=== PATIENT | female | born 1985 | race Caucasian/White ===

== ENCOUNTER 2019-09-23 17:37 | Inpatient (IN) | payer BC ==
[~2019-09-23] VITALS: Ht 160 cm; Wt 90.9 kg
[2019-10-23] MEDS ORDERED: [UNRECOGNIZED DRUG - OTHER] PO (15:35)
[2019-10-23 16:00] LABS: BASOPHILS 0.3 % (0-2); EOSINOPHILS 1.4 % (0-7); HEMATOCRIT 40.9 % (36.0-48.0); HEMOGLOBIN 13.5 g/dL (12-16); IMMATURE GRANULOCYTES 0.3 % (0-5); LYMPHOCYTES 37.8 % (15-50); MCV 84.7 fL (80.0-100.0); MONOCYTES 7.7 % (2-11); NEUTROPHILS 52.5 % (40-80); PLATELET COUNT 394 10x3/uL (130-400); RBC 4.83 10x6/uL (4.00-5.40); RDW 13.4 % (11.5-14.5); WBC 11.6 10x3/uL (4.8-10.8)
[2019-10-23 16:58] LABS: CALC OSMOLALITY 279 mosm/kg (275-300); CARBON DIOXIDE 25.3 mmol/L (21.0-32.0); CHLORIDE - SERUM 106 mmol/L (98-107); CREATININE - SERUM 0.7 mg/dL (0.6-1.3); GLUCOSE 118 mg/dL (74-106); POTASSIUM - SERUM 3.6 mmol/L (3.5-5.1); SODIUM 140 mmol/L (136-145); UREA NITROGEN 12 mg/dL (7-18); eGFR NON AFRICAN AMERICAN > 90 mL/min (90-120)
[2019-10-25] VITALS (13 sets, daily range): BP systolic 109–141; BP diastolic 68–94; Ht 160 cm; Wt 90.9 kg
[2019-10-25] MEDS ORDERED: ZYRTEC D PO (05:36)
[2019-10-25 06:23] LABS: HCG URINE NEGATIVE (NEGATIVE)
--- NOTE | 2019-10-25 11:07 | NUR ---
TO ROOM 1273 VIA BED FROM RR. AWAKE AND ALERT. VERBAL RESPONSES APPRO TO QUESTIONS. LARRY AT WILL. NO O2 ON. IV LT HAND AND LR INFUSING-PLACED ON PUMP AT 125CC/HR. BIKINI LINE INCISION WITH DRESSING -CD&I. ICE CAP TO ABD. SMILEY CATH WITH BLUE TINT URINE. SCD'S ON.
--- NOTE | 2019-10-25 11:12 | NUR ---
DR. PATRICIA CALLED FOR POST OP ORDERS D/T PT C/O PAIN. ORDERS REC'D.
--- NOTE | 2019-10-25 11:46 | NUR ---
OVEN WORKER DILAUDID 0.2MG Q10MIN SETUP AND EXPLAINED TO PT. FAMILY AT BEDSIDE.
--- NOTE | 2019-10-25 11:50 | NUR ---
EATING ON ICE CHIPS. STATES NAUSEA IS BETTER.
--- NOTE | 2019-10-25 12:30 | NUR ---
resting - denies needs. sipping on liquids- tolerating well.
--- NOTE | 2019-10-25 14:54 | NUR ---
ABD SOFT. ABD DRESSING REMAINS CD&I. INCENTIVE ALICIA USED. POSITION CHANGED TO RT SIDE TILT. STATES FEELS A LITTLE NAUSEATED - WILL GIVEN ZOFRAN.
--- NOTE | 2019-10-25 16:00 | NUR ---
TO ROOM TO EMPTY SMILEY AND CLEAR IV FLUID TOTALS. PT IS SITTING UP IN THE BED WATCHING TV, SEE I/O FOR TOTALS. ABDOMEN PALPATES SOFT, ICE PACK REMOVED FROM ABDOMEN, SLIGH REDNESS NOTED AREA UNDER ICE PACK, PT AGREES. PT DENIES ALL NEEDS AT THIS TIME. SRUP X2, CALL LIGHT AND PHONE WITHIN REACH.
--- NOTE | 2019-10-25 16:11 | NUR ---
STATES THAT NAUSEA IS A LITTLE BETTER. NO EMESIS. ABD SOFT. DRESSING CD&I.
--- NOTE | 2019-10-25 19:34 | NUR ---
PT REC'D IN BED AT THIS TIME. NO DISTRESS NOTED. PT STATES THAT HER PAIN LEVEL IS 4. DRESSING TO THE ABDOMEN C/D/I. SMILEY CATH PATENT WITH SMALL AMOUNT OF URINE NOTED. COMPLETTE ASSESSEMNT PER FOWSHEET AT THIS TIME. Brown SPAULDING, RN
--- NOTE | 2019-10-25 19:48 | NUR ---
TORADOL AND ZOFRAN GIVEN AT THIS TIME FOR NAUSEA AND PAIN. Brown SPAULDING RN
--- NOTE | 2019-10-25 20:35 | NUR ---
PT REC'D IN BED AT THIS TIME. STATES NAUSEA IS BETTER AND PAIN LEVEL IS A 2 AT THIS TIME. SMILEY CATH EMPTIED WITH 300 ML OF URINE NOTED. NO OTHER NEEDS NOTED AT THIS TIME. Brown SPAULDING RN
--- NOTE | 2019-10-25 21:35 | NUR ---
PT REC'D IN BED AT THIS TIME. STATES THAT PAIN IS A 2. PT REPOSITIONED AT THIS TIME. NO DISTRESS NOTED. Brown SPAULDING RN
--- NOTE | 2019-10-25 22:36 | NUR ---
PT ASLEEP AT THIS TIME. RESPS EVEN AND UNLABORED. NO DISTRESS NOTED. Brown SPAULDING RN
[2019-10-26] VITALS (7 sets, daily range): BP systolic 104–122; BP diastolic 52–74
--- NOTE | 2019-10-26 00:07 | NUR ---
PT REC'D AWAKE AT THIS TIME. STATES THAT PAIN CONTROL IS ADEQUATE. VSS. SMILEY CATH EMPTIED WITH 1150 ML OF CLEAR URINE NOTED. Brown SPAULDING, RN
--- NOTE | 2019-10-26 01:49 | NUR ---
PT REC'D IN BED AT THIS TIME. STATES PAIN OF 4. PT MEDICATED WITH TORADOL. WILL MONITOR. Brown SPAULDING RN
--- NOTE | 2019-10-26 02:55 | NUR ---
PT RESTING AT THIS TIME. DID NOT AWAKEN. NO DISTRESS NOTED. Brown SPAULDING RN
[2019-10-26 06:14] LABS: BASOPHILS 0.1 % (0-2); EOSINOPHILS 0.1 % (0-7); HEMATOCRIT 38.4 % (36.0-48.0); HEMOGLOBIN 12.3 g/dL (12-16); IMMATURE GRANULOCYTES 0.5 % (0-5); MCH 27.6 pg (26.0-34.0); MCV 86.1 fL (80.0-100.0); MEAN PLATELET VOLUME 10.3 fL (7.4-10.4); MONOCYTES 9.2 % (2-11); NEUTROPHILS 74.1 % (40-80); PLATELET COUNT 341 10x3/uL (130-400); RBC 4.46 10x6/uL (4.00-5.40); RDW 13.7 % (11.5-14.5)
[2019-10-26 06:18] LABS: CALC OSMOLALITY 274 mosm/kg (275-300); CALCIUM 8.7 mg/dL (8.5-10.1); CARBON DIOXIDE 26.8 mmol/L (21.0-32.0); CHLORIDE - SERUM 105 mmol/L (98-107); CREATININE - SERUM 0.7 mg/dL (0.6-1.3); GLUCOSE 100 mg/dL (74-106); POTASSIUM - SERUM 3.9 mmol/L (3.5-5.1); SODIUM 138 mmol/L (136-145); UREA NITROGEN 9 mg/dL (7-18); eGFR NON AFRICAN AMERICAN > 90 mL/min (90-120)
--- NOTE | 2019-10-26 08:06 | NUR ---
TORADOL 30 MG GIVEN IVP FOR 3/10 INCISIONAL BURNING. IV FLUIDS THEN DC'D. DISCUSSED CHANGED TO PO MEDS, SHOWER, VOIDING AND AMBULATION TODAY. SMILEY DC'D WITH 125ML CLEAR URINE IN BAG. STATES "THAT FEELS BETTER". SHIFT ASSESSMENT WAS COMPLETED. SDCS REMOVED AT THIS TIME, ENCOURAGED PT TO MOVE LEGS AROUND, C/O SOME ITCHING LEFT UPPER CALF "I THINK BECAUSE OF SCD'S". WILL REPLACE WHEN PT IS READY. SALINE LOCK WAS FLUSHED. REGULAR DIET GIVEN. SIDE RAILS UP X 2, CALL LIGHT IN REACH. NO ADDITIONAL REQUESTS. DISCUSSED RELIEF MEASURES FOR GAS. VERBALIZED UNDERSTANDING. TO CALL WHEN NEEDING TO VOID OR PRN.
--- NOTE | 2019-10-26 10:36 | NUR ---
UP TO BATHROOM TO VOID. MISSED [place] HAT BUT NOTED YELLOW COLOR IN TOILET, 10 ML IN [place] HAT. YONY-CARE PER SELF, CLEAN YONY-PAD AND UNDERWEAR ON. AMBULATING IN ROOM. CURRENTLY BRUSHING TEETH. 3/10 INCISIONAL SORENESS. DENIES NEEDING ANYTHING. PLAN SHOWER AFTER LUNCH. VISITOR X 1 IN ROOM. PARTIAL LINEN CHANGE DONE. TO CALL IF ANYTHING IS NEEDED. VERBALIZED UNDERSTANDING.
--- NOTE | 2019-10-26 12:06 | NUR ---
SITTING UP IN BED WATCHING TV. NO REQUESTS AT THIS TIME. SAYS HER MOTHER WILL BE HERE ABOUT 1330. PLAN SHOWER BEFORE OR AT THAT TIME. TO CALL IF ANYTHING IS NEEDED. VERBALIZED UNDERSTANDING. WAITING ON LUNCH.
--- NOTE | 2019-10-26 13:05 | NUR ---
AMBULATING IN AJCOBSEN. AMBULATED TO ICE MACHINE AND BACK TO ROOM. DENIES NEEDING ANYTHING. SAYS SHE MIGHT LIKE PAIN MEDICATION ABOUT 2:00 BEFORE HER SHOWER. TOLERATED AMBULATION WITHOUT DIFFICULTY.
--- NOTE | 2019-10-26 14:13 | NUR ---
TORADOL 10 MG AND NORCO 10 MG GIVEN FOR RELIEF OF 3/10 INCISIONAL BURNING AND FOR PREPARATION TO TAKE SHOWER. LAYING IN BED WATCHING TV AT PRESENT. DECLINES SCDS AT THIS TIME SAYING THAT SHE JUST GOT BACK IN BED AFTER VOIDING. TO LET RN KNOW WHEN STAYING IN BED AND WILL REPLACE SCDS. REMINDED TO USE INCENTIVE SPIROMETER HOURLY AND TO MOVE LE FREQUENTLY. VERBALIZED UNDERSTANDING. VOIDED 200+ ML GREEN TINGED URINE. NOT ALL URINE WAS COLLECTED IN [place] HAT. GREEN TINGE NOTED IN TOILET BOWL.
--- NOTE | 2019-10-26 16:26 | NUR ---
COMPLETED SHOWER, COMPLETE LINEN CHANGE DONE. WAS INSTRUCTED ON DRESSING REMOVAL IN SHOWER AND SKIN CARE WITH CHIVO. PAIN WAS 5/10 AND NOW 3/10 AFTER RETURNING TO BED. CURRENTLY TALKING TO VISITORS. HAS NOTED PERIODIC "TEETH CHATTERING" WHEN FIRST GETTING OUT OF BED. DOES NOT LAST. C/O BURNING BILATERAL TO INCISION SITE. NATALIA INTACT, SMALL AMOUNT SEROUS DRAINAGE ON YONY-PAD. SLIGHT ERRYTHEMA TO LEFT OF INCISION, APPROX 3 CM EXCORIATION NOTED RIGHT SIDE OF INCISION AND BELOW INCISION, APPEARS TO BE AREAS WHERE DRESSING TAPE WAS REMOVED. OFF THE CART ALOE VERA LOTION AND SKIN PROTECTANT SPRAY GIVEN TO PATIENT. ASSISTED WITH SPRAY AT THIS TIME. YONY-PAD REPLACED. NO ADDITIONAL REQUESTS. VISITORS X 2 IN ROOM. SIDERAILS UP X 2, CALL LIGHT IN REACH. SCDS CURRENTLY OFF. UP AD CARRIE.
--- NOTE | 2019-10-26 18:03 | NUR ---
RETURNED TO ROOM AFTER AMBULATING TO ICE MACHINE. SITTING UP IN BED WATCHING. VS OBTAINED. VOIDED 300 ML URINE. 3/10 INCISIONAL PAIN, NO REQUESTS FOR PAIN MED. ENCOURAGED TO ASK IF NEEDING ANYTHING FOR PAIN. VERBALIZED UNDERSTANDING. NO CURRENT VISITORS. AT 75% DINNER. CALL LIGHT IN REACH. TO CALL IF ANYTHING IS NEEDED.
--- NOTE | 2019-10-26 19:03 | NUR ---
RN TO PT'S BEDSIDE FOR ASSESSMENT. PT STATES HER PAIN IS 2/10 TO ABDOMINAL INCISION AREA, INCISION IS INTACT, NATALIA IN PLACE, NO REDDNESS NOTED TO AREA, AREA IS CLEAN AND DRY. RN TO ADMINISTER PAIN MEDICATION WHEN ABLE TO. NON-PITTING EDEMA TO BILATERAL LOWER EXTREMITY. PT'S URINE TO URINE HAT IN COMMODE IS LIGHT BLUE GREEN. PT STATES ALL HER NEEDS ARE MET CURRENTLY, BED IN LOWEST POSITION, SIDE RAILS UP X2, CALL LIGHT WITHIN REACH. PT HAS NON-SKID SOCKS ON.
--- NOTE | 2019-10-26 23:42 | NUR ---
RN TO PT BEDSIDE FOR RONDING. PT COMPLAINS OF 4/10 PAIN ON PAIN SCALE TO ABDOMINAL INCISION AREA, NORCO 10 PO ADMINISTERED AT THIS TIME. PT UP TO BATHROOM TO VOID, 750ML OF URINE IN URINE HAT AT COMMODE. URINE IS LIGHT GREEN IN COLOR. PT DENIES ANY BLEEDING AT THIS TIME. INCISION IS CLEAN, DRY, AND NATALIA ARE INTACT. NO REDDNESS NOTED TO AREA, PT PROVIDED ADDITIONAL BLANKET AND PILLOW FOR COMFORT. PT STATES THAT ALL HER NEEDS ARE CURRENTLY MET AT THIS TIME. BED IN LOWEST POSITION, SCD'S ON, SIDE RAILS UP X2, CALL LIGHT WITHIN REACH. LIGHTS DIMMED.
--- NOTE | 2019-10-27 01:29 | NUR ---
RN TO PT BEDSIDE FOR ROUNDING, PT STATES ALL HER NEEDS ARE CURRENTLY MET, PT'S PAIN IS 2/10 TO ABDOMINAL INCISION, PT STATES SHE JUST TURNED TO HER LEFT SIDE AND THE MOVEMENT INCREASED HER PAIN. PT STATES HER PAIN IS TOLERABLE AND NO INTERVENTIONS ARE NEEDED AT THIS TIME. BED IN LOWEST POSITION, SIDE RAILS UPX2, CALL LIGHT WITHIN REACH.
[2019-10-27 05:06] VITALS: BP 110/68
--- NOTE | 2019-10-27 05:06 | NUR ---
RN TO PT BEDSIDE FOR ROUNDING.VSS. PT STATES PAIN IS 2/10 ON PAIN SCALE TO ABDOMINAL INCISION AREA. NO REDDNESS NOTED. PT STATES ALL HER NEEDS ARE MET AT THIS TIME. BED IN LOWEST POSITION, SIDE RAILS UPX2, CALL LIGHT WITHIN REACH.
[2019-10-27 07:01] VITALS: BP 128/82
--- NOTE | 2019-10-27 07:01 | NUR ---
THIS RN TO ROOM FOR SHIFT ASSESSMENT. ASSESSMENT COMPLETED, VSS, SEE FLOWSHEET FOR DOC. PT RATES PAIN APPROX 3-4/10, REQUESTS TORADOL TO STAY AHEAD OF PAIN WITH MOVEMENT. TORADOL ADMIN ORDERED, SEE EMAR FOR DOC. ABD INCISION IS C/D WITH NATALIA INTACT, NO REDNESS OR SWELLING NOTED. SCANT SEROUS DRAINAGE NOTED TO ABD PAD AGAINST INCISION, NO ODOR. PT REPORTS SCANT PINK DISCHARGE DURING THE NIGHT, NO VAGINAL BLEEDING NOTED. PEDAL PULSES 2+ BILAT, NEG HOMANS SIGN BILAT. PT DENIES FURTHER NEEDS. MED TIMES WRITTEN ON BOARD, WILL REASSESS. PT STATES SHE PLANS TO D/C TO HOME TODAY DISCUSSED WITH . GERMAIN Carrera IN REACH. LIGHTS IN ROOM DIMMED FOR REST. WILL CONT TO MONITOR.
--- NOTE | 2019-10-27 07:02 | NUR ---
LEFT HAND PIV REMOVED NO LONGER INDICATED. PRESSURE HELD AND BANDAID APPLIED.
--- NOTE | 2019-10-27 08:49 | NUR ---
THIS RN TO ROOM FOR PT CHECK. PT SITTING UP IN BED, FINISHED EATING BREAKFAST, DENIES NEEDS. PT DENIES PAIN AT THIS TIME, STATES SHE MAY TAKE A NORCO FOR PAIN WITH MOVEMENT BEFORE SHE D/C'S HOME. WAITING ON MD TO ROUND. 500ML CLEAR YELLOW URINE EMPTIED FROM URINE HAT.
--- NOTE | 2019-10-27 10:40 | NUR ---
THIS RN TO ROOM FOR PT CHECK. PT SITTING UP IN BED, DENIES PAIN OR ANY NEEDS AT THIS TIME. SRUx2, CL IN REACH. WILL CONT TO MONITOR.
--- NOTE | 2019-10-27 13:05 | NUR ---
THIS RN TO ROOM FOR PT CHECK. PT SITTING UP IN BED, DENIES NEEDS. SRUx2, CL IN REACH. WILL CONT TO MONITOR.
--- NOTE | 2019-10-27 13:10 | NUR ---
DR SALGADO TO PT ROOM FOR ROUNDING. DISCHARGE ORDER RECEIVED.
[2019-10-27] MEDS ORDERED: IBUPROFEN800 MG PO (13:39)
[2019-10-27] MEDS ORDERED: PERCOCET 7.5/321 TAB PO (13:40)
--- NOTE | 2019-10-27 13:50 | NUR ---
PT GIVEN D/C INSTRUCTIONS WELL WRITTEN PRESRIPTIONS PROVIDED BY MD FOR PAIN CONTROL POST D/C TO HOME. PT VERBALIZES UNDERSTANDING AND DENIES QUESITONS. SIGNS CHART COPIES. WILL OBTAIN W/C TO TAKE PT OUT.
--- NOTE | 2019-10-27 13:51 | NUR ---
PT ADMIN PRN PAIN MEDS FOR PAIN CONTROL WITH MOVEMENT ON RIDE HOME FOR DISCHARGE, SEE EMAR FOR DOC.
--- NOTE | 2019-10-27 14:04 | NUR ---
PT TAKEN OFF UNIT VIA W/C TO PRIVATE VEHICLE FOR D/C TO HOME. PT MOTHER TO DRIVE HER HOME. BELONGINGS, PRESCRIPTIONS, AND D/C INSTRUCTIONS IN PT POSSESSION.
--- NOTE | 2019-10-27 15:31 | MORECARE ---
CASE MANAGEMENT DISCHARGE SUMMARY PATIENT: ABA FARRIS UNIT: [id number] ADM DATE: 10/25/19 AGE: 34 : 87 SEX: F ROOM/BED: D.1274 AUTHOR: ERICK FORD PHYSICIAN: REFERRING PHYSICIAN: TIFFANY PATRICIA MD DATE OF SERVICE: 10/27/19 Discharge Plan Patient Name: ABA FARRIS Facility: [facility]:[place] : 1985 Planned Disposition: Home or Self Care Anticipated Discharge Date: 10/27/19 Discharge Date: 10/27/2019 Expected LOS: 2 Initial Reviewer: [email or web address] Initial Review Date: 10/25/2019 Generated: 10/27/19 4:31 pm Patient Name: ABA FARRIS Page [id number] at 1531 All edits/amendments must be made on the electronic document DICTATION DATE: 10/27/19 1531 BINDER OPERATOR: HOLLY 10/27/19 1531 RPT#: [id number] DC DATE:10/27/19 STATUS: DIS IN [facility] [address] [place] [address] END OF REPORT
== END 2019-10-27 14:10 | disposition home or self-care (01) | DRG 743 ==
LOC: EDUNIT# → D.SDCHOLD 10-25 05:20 → D.LD 10-25 05:20 → D.SDCHOLD 10-25 07:30 → D.LD 10-25 10:08
PROVIDERS: ADMIT Obstetrics & Gynecology; ATTEND Obstetrics & Gynecology
PROC: 0UT90ZZ Resection of Uterus, Open Approach (ICD-10-PCS; principal; 2019-10-25 07:30)
DX: N80.0 Endometriosis of uterus (principal)